=== PATIENT | female | born 1990 | race Caucasian/White ===

== ENCOUNTER 2023-06-27 12:30 | Emergency (ER) | payer BC ==
[~2023-06-27] VITALS: Ht 167.6 cm; Wt 94.3 kg
[2023-06-27 12:43] VITALS: BP 117/75; PULSE 70; RESP 20; TEMP 98.5; O2SAT 97
[2023-06-27 13:58] LABS: BASOPHILS % (AUTO) 0.2 % (0.0-2.0); EOSINOPHILS # (AUTO) 0.1 K/uL (0-0.4); EOSINOPHILS % (AUTO) 1.2 % (0.0-4.0); HEMATOCRIT 38.3 % (36-48); HEMOGLOBIN 13.4 g/dL (12.0-16.0); LYMPHOCYTES # (AUTO) 1.6 K/uL (2.5-16.5); LYMPHOCYTES % (AUTO) 25.9 % (20.5-51.1); MEAN CORPUSCULAR HEMOGLOBIN 31 pg (27-31); MEAN CORPUSCULAR HGB CONC 35 g/dL (33-37); MEAN CORPUSCULAR VOLUME 89.9 fL (80-94); MONOCYTES # (AUTO) 0.5 K/uL (0.8-1.0); MONOCYTES % (AUTO) 7.2 % (1.7-9.3); NEUTROPHILS # (AUTO) 4.2 K/uL (1.8-7.7); NEUTROPHILS % (AUTO) 65.5 % (42.2-75.2); PLATELET COUNT (AUTO) 228 K/uL (140-450); RED BLOOD CELL COUNT(AUTO) 4.26 MIL/uL (4.20-5.40); RED CELL DISTRIBUTION WIDTH 13.6 % (11.6-13.7); WHITE BLOOD COUNT (AUTO) 6.4 K/uL (4.8-10.8)
[2023-06-27 14:22] LABS: ANION GAP 14.6 (8-16); CREATININE 0.9 mg/dL (0.6-1.3); POTASSIUM 3.6 mmol/L (3.5-5.1)
[2023-06-27 14:26] LABS: ALBUMIN 3.7 g/dL (3.4-5.0); BILIRUBIN,DIRECT 0.1 mg/dL (0.0-0.3); TOTAL BILIRUBIN 0.5 mg/dL (0.0-1.0); TOTAL PROTEIN, SERUM 7.2 g/dL (6.4-8.2)
[2023-06-27 14:48] VITALS: BP 134/80; PULSE 79; RESP 18; TEMP 98.6; O2SAT 97
[2023-06-27 18:15] LABS: BLOOD GAS PCO2 28.9 mmHg (35-45); BLOOD GAS PH 7.476 (7.35-7.45); BLOOD GAS PO2 99.8 mmHg (75-100)
[2023-06-27 18:16] LABS: BLOOD GAS BASE EXCESS -1.5 mmol/L (-2.0-2.0); BLOOD GAS HCO3 20.8 mmol/L (22-26)
[2023-06-27 18:22] LABS: BLOOD GAS O2 SAT% 97.5 % (92.0-98.5)
== END 2023-06-27 14:50 | disposition home or self-care (01) ==
LOC: MED 12:30
DX: R06.02 Shortness of breath (principal); R05.9 Cough, unspecified
CPT/HCPCS: 36415; 36600; 71045; 80048; 80076; 82803; 85025; 99284